=== PATIENT | male | born 1960 | race Caucasian/White ===

== ENCOUNTER 2017-10-08 19:23 | Emergency (ER) | payer OTHER ==
[~2017-10-08] VITALS: Ht 172.7 cm; Wt 127.0 kg
[2017-10-08] MEDS ORDERED: LIDOCAINE 1%-EPI 1:100,000 20 ML VIAL ONE (19:57)
[2017-10-08] MEDS ORDERED: ACETAMINOPHEN 325 MG TABLET ONE (19:57)
[2017-10-08] MEDS ORDERED: TDAP [DIPH/PERTUSSIS/TET] 0.5 ML VIAL IM ONE ×2 (19:58→20:00)
[2017-10-08] MEDS ORDERED: LIDOCAINE 1%-EPI 1:100,000 20 ML VIAL TP ONE (20:00)
[2017-10-08] MEDS ORDERED: ACETAMINOPHEN 325 MG TABLET PO ONE (20:00)
[2017-10-08] MEDS ORDERED: IV NS 0.9% 1,000 ML BAG IV ONE (20:30)
--- NOTE | 2017-10-08 20:40 | NUR ---
PT BP HAS DROPPED TO 70'S SYSTOLIC. ORDER FOR 1L NS GIVEN BY RUDOLPH KEYES
--- NOTE | 2017-10-08 20:50 | NUR ---
PA AT BEDSIDE FOR SUTURE
[2017-10-08 21:40] VITALS: BP 110/70
== END 2017-10-08 21:41 | disposition home or self-care (01) ==
LOC: ER 19:26
DX: S81.812A Laceration without foreign body, left lower leg, initial encounter (principal); I10 Essential (primary) hypertension; E78.00 Pure hypercholesterolemia, unspecified; E11.9 Type 2 diabetes mellitus without complications; Z79.82 Long term (current) use of aspirin; W25.XXXA Contact with sharp glass, initial encounter; Y93.89 Activity, other specified; Y92.89 Other specified places as the place of occurrence of the external cause; Y99.8 Other external cause status
CPT/HCPCS: 12002; 73590; 90471; 90715; 99284; A4606; A6402 ×2; J3490; J7030; Z7610

== ENCOUNTER 2020-10-20 10:30 | Emergency (ER) | payer OTHER ==
[~2020-10-20] VITALS: Ht 167.6 cm; Wt 124.7 kg
[2020-10-20 11:09] VITALS: BP 134/99
--- NOTE | 2020-10-20 11:15 | NUR ---
The patient bibs for c/o "Rashes/shingles - since Friday. Having a lot of stress". Will continue to monitor the patient.
--- NOTE | 2020-10-20 12:25 | NUR ---
Patient discharged to home in stable condition. Written and verbal after care instructions given. Patient verbalizes understanding of instruction.
[2020-10-20] MEDS ORDERED: OXYC-128 PO (12:35)
[2020-10-20] MEDS ORDERED: VALA100026 PO (12:35)
--- NOTE | 2020-10-20 12:47 | NUR ---
Patient discharged to home in stable condition. Written and verbal after care instructions given. Patient verbalizes understanding of instruction.
== END 2020-10-20 12:48 | disposition home or self-care (01) ==
LOC: ER 10:32
DX: B02.9 Zoster without complications (principal); I10 Essential (primary) hypertension; E78.5 Hyperlipidemia, unspecified; E11.9 Type 2 diabetes mellitus without complications